=== PATIENT | male | born 1965 | race Caucasian/White ===

== ENCOUNTER 2017-07-06 12:13 | Emergency (ER) | payer MEDICAID ==
[2017-07-06] MEDS ORDERED: Lidocaine 1% 20 ML MDV INJECT ONE (12:15)
[2017-07-06] MEDS ORDERED: Bupivacaine 0.25% 10 ML SDV INJECT ONE (12:15)
--- NOTE | 2017-07-06 12:43 | EDM.PDOCBH ---
ED HPI GENERAL MEDICAL PROBLEM - General Chief Complaint: Behavioral/Psych Stated Complaint: AMB Time Seen by Provider: 07/06/17 12:15 Source of Information: Reports: Patient History Limitations: Reports: No Limitations - History of Present Illness INITIAL COMMENTS - FREE TEXT/NARRATIVE: History of present illness: []Patient came from [place] where he tried to harm himself by cutting his wrist with scissors and drinking aqua net hairspray at noon because he hears voices and he told him to do this. . He states he took 2 sips of hairspray. [facility] dispenses his meds and he states he takes them. Review of systems: As per history of present illness and below otherwise all systems reviewed and negative. Past medical history: As per history of present illness and as reviewed below otherwise noncontributory. Surgical history: As per history of present illness and as reviewed below otherwise noncontributory. Social history: No reported history of drug or alcohol abuse. Family history: As per history of present illness and as reviewed below otherwise noncontributory. Physical exam: General: Well developed, well nourished in NAD HEENT: Atraumatic, normocephalic, pupils reactive, negative for conjunctival pallor or scleral icterus, mucous membranes moist, throat clear, neck supple, nontender, trachea midline. Lungs: Clear to auscultation, breath sounds equal bilaterally, chest nontender. Heart: S1S2, regular, negative for clicks, rubs, or JVD. Abdomen: Soft, nondistended, nontender. Negative for masses or hepatosplenomegaly. Negative for costovertebral tenderness. Pelvis: Stable nontender. Genitourinary: Deferred. Rectal: Deferred. Extremities: Left wrist with 4 cm laceration with active bleeding patient able to move fingers and has brisk capillary refill distally, negative for cords or calf pain. Neurovascular unremarkable. Neuro: Awake, alert, oriented. Cranial nerves II through XII unremarkable. Cerebellum unremarkable. Motor and sensory unremarkable throughout. Exam nonfocal. Diagnostics: []Mental health workup all negative Therapeutics: []Left wrist sutured, tetanus status updated, one dose of Zyprexa given Impression: []Schizophrenia, suicidal attempt, left wrist laceration, toxic ingestion Plan: [Psychiatrist in [facility] Dr. Vasquez accepts patient and will go to the ER , Dr. Blanco accepts. Definitive disposition and diagnosis as appropriate pending reevaluation and review of above. - Related Data Allergies Allergy/AdvReac Type Severity Reaction Status Date / Time quetiapine [From Seroquel] Allergy Other Verified 07/06/17 12:15 Home Meds: Home Meds Ascorbic Acid [Vitamin C] 500 mg PO DAILY 07/06/17 [History] Benztropine [Cogentin] 0.5 mg PO BEDTIME 07/06/17 [History] Cyanocobalamin (Vitamin B-12) [Cyanocobalamin Injection] 1,000 mcg IJ DAILY 02/12 [History] Docusate Sodium [Colace] 100 mg PO BID 07/06/17 [History] Fluticasone/Salmeterol [Advair 250-50 Diskus] 1 each PO DAILY 07/06/17 [History] Folic Acid 1 mg PO DAILY 07/06/17 [History] Furosemide [Lasix] 40 mg PO DAILY 07/06/17 [History] Levothyroxine [Synthroid] 50 mcg PO DAILY 07/06/17 [History] Losartan [Cozaar] 50 mg PO DAILY 07/06/17 [History] Magnesium Chloride [Mag-64] 64 mg PO BID 07/06/17 [History] Magnesium Hydroxide [Milk of Magnesia] 30 ml PO DAILY PRN 07/06/17 [History] Multivitamin [Multivitamins] 1 each PO DAILY 07/06/17 [History] Oseltamivir [Tamiflu] 75 mg PO DAILY 07/06/17 [History] Polyethylene Glycol 3350 [MiraLAX] 17 gm PO DAILY 07/06/17 [History] Potassium Chloride 30 meq PO DAILY 07/06/17 [History] Topiramate 100 mg PO DAILY 07/06/17 [History] amLODIPine Besylate [Amlodipine Besylate] 10 mg PO DAILY 07/06/17 [History] atorvaSTATin [Lipitor] 40 mg PO DAILY 07/06/17 [History] buPROPion [buPROPion XL] 300 mg PO DAILY 07/06/17 [History] cloZAPine [Clozaril] 200 mg PO BID 07/06/17 [History] Past Medical History Cardiovascular History: Reports: Hypertension Respiratory History: Reports: COPD Gastrointestinal History: Reports: GERD Psychiatric History: Reports: Anxiety, Schizophrenia Endocrine/Metabolic History: Reports: Hypothyroidism Social & Family History - Family History Family Medical History: Noncontributory - Tobacco Use Smoking Status *Q: Never Smoker - Recreational Drug Use Recreational Drug Use: No ED ROS GENERAL - Review of Systems Review Of Systems: See Below (See history of present illness) ED EXAM, BEHAVIORAL HEALTH - Physical Exam Exam: See Below (See history of present illness) ED Add Procedures - Additional/Other Procedure(s) Procedure(s) (Free Text): Patient's left wrist was anesthetized with 3 mL of half percent lidocaine without and half percent lidocaine without. 5 cm wound of the left wrist was cleaned with saline and sutured with 5-0 nylon without any difficulty. COURSE, BEHAVIORAL HEALTH COMP - Course Vital Signs: Last Vital Signs Temp 97.7 F 07/06/17 12:15 Pulse 107 H 07/06/17 12:15 Resp 20 07/06/17 12:15 BP 174/94 H 07/06/17 12:15 Pulse Ox 99 07/06/17 12:15 Orders, Labs, Meds: Active Orders 24 hr Category Date Time Status EKG Documentation Completion [RC] STAT Care 07/06/17 12:17 Active Involuntary Admission/Hold [RC] ASDIRECTED Care 07/06/17 12:17 Active Vaccines to be Administered [RC] PER UNIT ROUTINE Care 07/06/17 13:10 Active FREE T3 [REF] Stat Lab 07/06/17 12:40 Received Laboratory Tests 07/06/17 07/06/17 07/06/17 Range/Units 12:40 12:40 12:47 WBC 8.31 (4.0-11.0) K/uL RBC 4.18 L (4.50-5.90) M/uL Hgb 13.4 (13.0-17.0) g/dL Hct 36.8 L (38.0-50.0) % MCV 88.0 (80.0-98.0) fL MCH 32.1 H (27.0-32.0) pg MCHC 36.4 (31.0-37.0) g/dL RDW Std Deviation 44.9 (28.0-62.0) fl RDW Coeff of Dewey 14 (11.0-15.0) % Plt Count 115 L (150-400) K/uL MPV 7.80 (7.40-12.00) fL Neut % (Auto) 76.1 (48.0-80.0) % Lymph % (Auto) 15.2 L (16.0-40.0) % [place] % (Auto) 8.7 (0.0-15.0) % Eos % (Auto) 0.0 (0.0-7.0) % Baso % (Auto) 0.0 (0.0-1.5) % Neut # (Auto) 6.3 H (1.4-5.7) K/uL Lymph # (Auto) 1.3 (0.6-2.4) K/uL [place] # (Auto) 0.7 (0.0-0.8) K/uL Eos # (Auto) 0.0 (0.0-0.7) K/uL Baso # (Auto) 0.0 (0.0-0.1) K/uL Nucleated RBC % 0.0 /100WBC Nucleated RBCs # 0 K/uL Sodium 132 L (136-146) mmol/L Potassium 3.6 (3.5-5.1) mmol/L Chloride 106 (98-110) mmol/L Carbon Dioxide 17 L (21-31) mmol/L BUN 9 (6.0-23.0) mg/dL Creatinine 0.9 (0.6-1.5) mg/dL Est Cr Clr Drug Dosing 102.26 mL/min Estimated GFR (MDRD) > 60.0 ml/min Glucose 99 (60-110) mg/dL Calcium 9.3 (8.8-10.8) mg/dL Magnesium 1.5 (1.5-2.3) mEq/L Total Bilirubin 0.9 (0.1-1.5) mg/dL AST 27 (5-40) IU/L ALT 45 (8-54) IU/L Alkaline Phosphatase 129 (40-150) Total Protein 6.1 (6.0-8.0) g/dL Albumin 4.2 (3.5-5.0) g/dL Globulin 1.9 L (2.0-3.5) g/dL Albumin/Globulin Ratio 2.2 (1.3-2.8) TSH 3rd Generation 1.07 (0.47-5.0) uIU/mL Urine Color Urine Appearance Urine pH (5.0-8.0) Ur Specific [place] (1.001-1.035) Urine Protein (NEGATIVE) mg/dL Urine Glucose (UA) (NEGATIVE) mg/dL Urine Ketones (NEGATIVE) mg/dL Urine Occult Blood (NEGATIVE) Urine Nitrite (NEGATIVE) Urine Bilirubin (NEGATIVE) Urine Urobilinogen (<2.0) EU/dL Ur Leukocyte Esterase (NEGATIVE) Urine RBC (0-2/HPF) Urine WBC (0-5/HPF) Ur Epithelial Cells (NONE-FEW) Urine Bacteria (NEGATIVE) Salicylates < 5.0 (0-20) mg/dL Urine Opiates Screen NEGATIVE (NEGATIVE) Ur Oxycodone Screen NEGATIVE (NEGATIVE) Urine Methadone Screen NEGATIVE (NEGATIVE) Acetaminophen < 3.0 ug/mL Ur Barbiturates Screen NEGATIVE (NEGATIVE) Ur Phencyclidine Scrn NEGATIVE (NEGATIVE) Ur Amphetamine Screen NEGATIVE (NEGATIVE) U Methamphetamines Scrn NEGATIVE (NEGATIVE) U Benzodiazepines Scrn NEGATIVE (NEGATIVE) U Cocaine Metab Screen NEGATIVE (NEGATIVE) U Marijuana (THC) Screen NEGATIVE (NEGATIVE) Ethyl Alcohol < 10.0 mg/dL 07/06/17 Range/Units 12:47 WBC (4.0-11.0) K/uL RBC (4.50-5.90) M/uL Hgb (13.0-17.0) g/dL Hct (38.0-50.0) % MCV (80.0-98.0) fL MCH (27.0-32.0) pg MCHC (31.0-37.0) g/dL RDW Std Deviation (28.0-62.0) fl RDW Coeff of Dewey (11.0-15.0) % Plt Count (150-400) K/uL MPV (7.40-12.00) fL Neut % (Auto) (48.0-80.0) % Lymph % (Auto) (16.0-40.0) % Kleberg % (Auto) (0.0-15.0) % Eos % (Auto) (0.0-7.0) % Baso % (Auto) (0.0-1.5) % Neut # (Auto) (1.4-5.7) K/uL Lymph # (Auto) (0.6-2.4) K/uL [place] # (Auto) (0.0-0.8) K/uL Eos # (Auto) (0.0-0.7) K/uL Baso # (Auto) (0.0-0.1) K/uL Nucleated RBC % /100WBC Nucleated RBCs # K/uL Sodium (136-146) mmol/L Potassium (3.5-5.1) mmol/L Chloride (98-110) mmol/L Carbon Dioxide (21-31) mmol/L BUN (6.0-23.0) mg/dL Creatinine (0.6-1.5) mg/dL Est Cr Clr Drug Dosing mL/min Estimated GFR (MDRD) ml/min Glucose (60-110) mg/dL Calcium (8.8-10.8) mg/dL Magnesium (1.5-2.3) mEq/L Total Bilirubin (0.1-1.5) mg/dL AST (5-40) IU/L ALT (8-54) IU/L Alkaline Phosphatase (40-150) Total Protein (6.0-8.0) g/dL Albumin (3.5-5.0) g/dL Globulin (2.0-3.5) g/dL Albumin/Globulin Ratio (1.3-2.8) TSH 3rd Generation (0.47-5.0) uIU/mL Urine Color YELLOW Urine Appearance CLEAR Urine pH 5.5 (5.0-8.0) Ur Specific [place] <= 1.005 (1.001-1.035) Urine Protein NEGATIVE (NEGATIVE) mg/dL Urine Glucose (UA) NEGATIVE (NEGATIVE) mg/dL Urine Ketones TRACE H (NEGATIVE) mg/dL Urine Occult Blood NEGATIVE (NEGATIVE) Urine Nitrite NEGATIVE (NEGATIVE) Urine Bilirubin NEGATIVE (NEGATIVE) Urine Urobilinogen 0.2 (<2.0) EU/dL Ur Leukocyte Esterase NEGATIVE (NEGATIVE) Urine RBC 0-1 (0-2/HPF) Urine WBC 0-1 (0-5/HPF) Ur Epithelial Cells RARE (NONE-FEW) Urine Bacteria RARE (NEGATIVE) Salicylates (0-20) mg/dL Urine Opiates Screen (NEGATIVE) Ur Oxycodone Screen (NEGATIVE) Urine Methadone Screen (NEGATIVE) Acetaminophen ug/mL Ur Barbiturates Screen (NEGATIVE) Ur Phencyclidine Scrn (NEGATIVE) Ur Amphetamine Screen (NEGATIVE) U Methamphetamines Scrn (NEGATIVE) U Benzodiazepines Scrn (NEGATIVE) U Cocaine Metab Screen (NEGATIVE) U Marijuana (THC) Screen (NEGATIVE) Ethyl Alcohol mg/dL Medications Discontinued Medications Generic Name Dose Route Start Last Admin Trade Name Baljit PRN Reason Stop Dose Admin Bacitracin 1 dose 07/06/17 13:23 07/06/17 13:30 Bacitracin Oint 1 Gm TOP 07/06/17 13:24 1 dose ONETIME ONE Administration Bupivacaine HCl 10 ml 07/06/17 12:15 07/06/17 12:21 Sensorcaine-Mpf 0.25% INJECT 07/06/17 12:16 10 ml ONETIME ONE Administration Diphtheria/Tetanus/Acell Pertussis 0.5 ml 07/06/17 13:10 07/06/17 13:30 Adacel IM 07/06/17 13:11 0.5 ml .ONCE ONE Administration Lidocaine HCl 20 ml 07/06/17 12:15 07/06/17 12:21 Xylocaine 1% INJECT 07/06/17 12:16 20 ml ONETIME ONE Administration Olanzapine 10 mg 07/06/17 13:06 07/06/17 13:08 Zyprexa PO 07/06/17 13:07 10 mg ONETIME ONE Administration Olanzapine Confirm 07/06/17 13:07 07/06/17 13:23 Zyprexa Administered 07/06/17 13:08 Not Given Dose 10 mg .ROUTE .STK-MED ONE Discharge vs Psych Eval/Treatment:: 07/06/17 13:51 Control was contacted and aqua net hairspray poses no threat. He is being transferred by ground ambulance on a hold to [facility] to Dr. Benítez. Departure - Departure Time of Disposition: 13:52 Disposition: DC/Tfer to Psych Hosp/Unit 65 Condition: Good Clinical Impression: Suicidal behavior with attempted self-injury - Discharge Information Forms: ED Department Discharge - My Orders Last 24 Hours: My Active Orders 07/06/17 12:17 EKG Documentation Completion [RC] STAT Involuntary Admission/Hold [RC] ASDIRECTED 07/06/17 12:40 FREE T3 [REF] Stat 07/06/17 13:10 Vaccines to be Administered [RC] PER UNIT ROUTINE - Assessment/Plan Last 24 Hours: My Active Orders 07/06/17 12:17 EKG Documentation Completion [RC] STAT Involuntary Admission/Hold [RC] ASDIRECTED 07/06/17 12:40 FREE T3 [REF] Stat 07/06/17 13:10 Vaccines to be Administered [RC] PER UNIT ROUTINE
[2017-07-06] MEDS ORDERED: OLANZapine 5 MG Tab PO ONE (13:06)
[2017-07-06] MEDS ORDERED: OLANZapine 5 MG Tab ONE (13:07)
[2017-07-06 13:10] LABS: ACETAMINOPHEN < 3.0 ug/mL; CHLORIDE,CL 106 mmol/L (98-110); SODIUM,NA 132 mmol/L (136-146)
[2017-07-06] MEDS ORDERED: Diphtheria,Pertussis(Acell),Tetanus Vaccine 0.5 ML Syringe IM ONE (13:10)
[2017-07-06] MEDS ORDERED: Bacitracin Oint 1 GM U/D Packet TOP ONE (13:23)
== END 2017-07-06 14:25 ==
LOC: MW.ED 12:13
DX: S61.512A Laceration without foreign body of left wrist, initial encounter (principal); T65.892A Toxic effect of other specified substances, intentional self-harm, initial encounter; F20.9 Schizophrenia, unspecified; I10 Essential (primary) hypertension; J44.9 Chronic obstructive pulmonary disease, unspecified; K21.9 Gastro-esophageal reflux disease without esophagitis; E03.9 Hypothyroidism, unspecified; Z79.899 Other long term (current) drug therapy; Z88.8 Allergy status to other drugs, medicaments and biological substances; X78.8XXA Intentional self-harm by other sharp object, initial encounter; Z23 Encounter for immunization
CPT/HCPCS: 12002; 36415; 80053; 80305; 81001; 83735; 84443; 84481; 85025; 90471; 90715; 93005; 99285; A9270; G0480; 99284

== ENCOUNTER 2018-02-08 13:34 | Emergency (ER) | payer MEDICAID ==
[2018-02-08] MEDS ORDERED: ceFAZolin/Dextrose,Iso-Osmotic 2 GM/50 ML Duplex Bag IV ONE (13:51)
[2018-02-08] MEDS ORDERED: ceFAZolin 2 GM in Premix Bag 1 BAG IV ONE (14:00)
[2018-02-08] MEDS ORDERED: Sodium Chloride 0.9% 1,000 ML IV ONE ×2 (14:05→14:11)
[2018-02-08] MEDS ORDERED: Lidocaine 1% 20 ML MDV INJECT ONE (14:09)
[2018-02-08] MEDS ORDERED: Bupivacaine 0.5% 10 ML SDV INJECT ONE (14:09)
[2018-02-08] MEDS ORDERED: Lidocaine 1% with EPINEPHrine 1:100,000 20 ML MDV INJECT ONE (14:10)
[2018-02-08] MEDS ORDERED: LORazepam 2 MG/ML SDV IVPUSH ONE (14:15)
[2018-02-08 14:32] LABS: CHLORIDE,CL 100 mmol/L (98-107); SODIUM,NA 133 mmol/L (136-148)
--- NOTE | 2018-02-08 14:41 | EDM.PDOCBH ---
ED HPI GENERAL MEDICAL PROBLEM - General Chief Complaint: Behavioral/Psych Stated Complaint: AMB Time Seen by Provider: 02/08/18 13:35 Source of Information: Reports: EMS History Limitations: Reports: No Limitations - History of Present Illness INITIAL COMMENTS - FREE TEXT/NARRATIVE: History of present illness: []Patient came in code 3 by ambulance for a self inflicted left forearm laceration with and arterial bleed. It was approximately 500 mL blood loss on scene. He has history of previous suicide attempts by cutting and states he did this intentionally today approximately one hour prior to arrival to kill himself. Patient had stable vital signs and arrived with a tourniquet in place on the left upper extremity. Review of systems: As per history of present illness and below otherwise all systems reviewed and negative. Past medical history: As per history of present illness and as reviewed below otherwise noncontributory. Surgical history: As per history of present illness and as reviewed below otherwise noncontributory. Social history: No reported history of drug or alcohol abuse. Family history: As per history of present illness and as reviewed below otherwise noncontributory. Physical exam: General: Well developed, well nourished in NAD HEENT: Atraumatic, normocephalic, pupils reactive, negative for conjunctival pallor or scleral icterus, mucous membranes moist, throat clear, neck supple, nontender, trachea midline. Lungs: Clear to auscultation, breath sounds equal bilaterally, chest nontender. Heart: S1S2, regular, negative for clicks, rubs, or JVD. Abdomen: Soft, nondistended, nontender. Negative for masses or hepatosplenomegaly. Negative for costovertebral tenderness. Pelvis: Stable nontender. Genitourinary: Deferred. Rectal: Deferred. Extremities: 2 transverse lacerations left forearm with venous bleeding, patient has distal sensation, brisk arterial and radial pulses, full range of motion of fingers and wrist negative for cords or calf pain. Neurovascular unremarkable. Neuro: Awake, alert, oriented. Cranial nerves II through XII unremarkable. Cerebellum unremarkable. Motor and sensory unremarkable throughout. Exam nonfocal. Skin:warm and dry Diagnostics: CBC shows H&H is 14/39, Chemistry, aspirin, Tylenol, alcohol, tox screen, UA, TSH. Repeat CBC at 16:00 repeat H&H is 12/34 Therapeutics: Lacerations were sutured after venous bleeding controlled by Dr. Massey, 2 g Ancef, IV hydration, patient tolerated meal and fluids ED Course: 16:00-[facility] except the patient for inpatient admission to psychiatry. Impression: Suicide attempt, laceration left forearm Prescriptions: Plan: Transferred to [facility] to Dr. Marcum for depression pediatric evaluation. Definitive disposition and diagnosis as appropriate pending reevaluation and review of above. - Related Data Allergies Allergy/AdvReac Type Severity Reaction Status Date / Time quetiapine [From Seroquel] Allergy Other Verified 07/06/17 12:15 Home Meds: Home Meds Ascorbic Acid [Vitamin C] 500 mg PO DAILY 07/06/17 [History] Benztropine [Cogentin] 0.5 mg PO BEDTIME 07/06/17 [History] Cyanocobalamin (Vitamin B-12) [Cyanocobalamin Injection] 1,000 mcg IJ DAILY 02/12 [History] Docusate Sodium [Colace] 100 mg PO BID 07/06/17 [History] Fluticasone/Salmeterol [Advair 250-50 Diskus] 1 each PO DAILY 07/06/17 [History] Folic Acid 1 mg PO DAILY 07/06/17 [History] Furosemide [Lasix] 40 mg PO DAILY 07/06/17 [History] Levothyroxine [Synthroid] 50 mcg PO DAILY 07/06/17 [History] Losartan [Cozaar] 50 mg PO DAILY 07/06/17 [History] Magnesium Chloride [Mag-64] 64 mg PO BID 07/06/17 [History] Magnesium Hydroxide [Milk of Magnesia] 30 ml PO DAILY PRN 07/06/17 [History] Multivitamin [Multivitamins] 1 each PO DAILY 07/06/17 [History] Oseltamivir [Tamiflu] 75 mg PO DAILY 07/06/17 [History] Polyethylene Glycol 3350 [MiraLAX] 17 gm PO DAILY 07/06/17 [History] Potassium Chloride in Water [Potassium Cl 30 Meq/100 ml Beena] 30 meq PO DAILY 02/12 [History] Topiramate 100 mg PO DAILY 07/06/17 [History] amLODIPine Besylate [Amlodipine Besylate] 10 mg PO DAILY 07/06/17 [History] atorvaSTATin [Lipitor] 40 mg PO DAILY 07/06/17 [History] buPROPion [buPROPion XL] 300 mg PO DAILY 07/06/17 [History] cloZAPine [Clozaril] 200 mg PO BID 07/06/17 [History] Past Medical History Cardiovascular History: Reports: Hypertension Respiratory History: Reports: COPD Gastrointestinal History: Reports: GERD Psychiatric History: Reports: Anxiety, Schizophrenia Endocrine/Metabolic History: Reports: Hypothyroidism Social & Family History - Family History Family Medical History: Noncontributory - Tobacco Use Smoking Status *Q: Never Smoker - Recreational Drug Use Recreational Drug Use: No ED ROS GENERAL - Review of Systems Review Of Systems: ROS reveals no pertinent complaints other than HPI. ED EXAM, BEHAVIORAL HEALTH - Physical Exam Exam: See Below (See history of present illness) COURSE, BEHAVIORAL HEALTH COMP - Course Vital Signs: Last Vital Signs Temp 96.6 F 02/08/18 13:40 Pulse 113 H 02/08/18 15:54 Resp 18 02/08/18 15:54 BP 105/68 02/08/18 15:54 Pulse Ox 95 02/08/18 15:54 Orders, Labs, Meds: Active Orders 24 hr Category Date Time Status Involuntary Admission/Hold [RC] ASDIRECTED Care 02/08/18 14:20 Active Laboratory Tests 02/08/18 02/08/18 02/08/18 Range/Units 13:30 13:30 15:15 WBC 10.86 (4.0-11.0) K/uL RBC 4.45 L (4.50-5.90) M/uL Hgb 14.2 (13.0-17.0) g/dL Hct 39.1 (38.0-50.0) % MCV 87.9 (80.0-98.0) fL MCH 31.9 (27.0-32.0) pg MCHC 36.3 (31.0-37.0) g/dL RDW Std Deviation 44.0 (28.0-62.0) fl RDW Coeff of Dewey 14 (11.0-15.0) % Plt Count 123 L (150-400) K/uL MPV 7.90 (7.40-12.00) fL Add Manual Diff YES Neutrophils % (Manual) 69 (48.0-80.0) % Band Neutrophils % 9 % Lymphocytes % (Manual) 17 (16.0-40.0) % Monocytes % (Manual) 5 (0.0-15.0) % Nucleated RBC % 0.0 /100WBC Absolute Seg Neuts 7.5 H (1.4-5.7) Band Neutrophils # 1.0 Lymphocytes # (Manual) 1.8 (0.6-2.4) Monocytes # (Manual) 0.5 (0.0-0.8) Nucleated RBCs # 0 K/uL Sodium 133 L (136-148) mmol/L Potassium 3.8 (3.5-5.1) mmol/L Chloride 100 (98-107) mmol/L Carbon Dioxide 18.7 L (21.0-32.0) mmol/L BUN 13 (7.0-18.0) mg/dL Creatinine 1.6 H (0.8-1.3) mg/dL Est Cr Clr Drug Dosing TNP Estimated GFR (MDRD) 45.4 ml/min Glucose 179 H (74-106) mg/dL Calcium 8.7 (8.5-10.1) mg/dL Total Bilirubin 0.5 (0.2-1.0) mg/dL AST 35 (15-37) IU/L ALT 65 H (14-63) IU/L Alkaline Phosphatase 106 (46-116) U/L Total Protein 6.7 (6.4-8.2) g/dL Albumin 4.0 (3.4-5.0) g/dL Globulin 2.7 (2.0-3.5) g/dL Albumin/Globulin Ratio 1.5 (1.3-2.8) TSH 3rd Generation 3.73 (0.36-3.74) uIU/mL Urine Color YELLOW Urine Appearance CLEAR Urine pH 6.0 (5.0-8.0) Ur Specific [place] <= 1.005 (1.001-1.035) Urine Protein NEGATIVE (NEGATIVE) mg/dL Urine Glucose (UA) NEGATIVE (NEGATIVE) mg/dL Urine Ketones NEGATIVE (NEGATIVE) mg/dL Urine Occult Blood SMALL H (NEGATIVE) Urine Nitrite NEGATIVE (NEGATIVE) Urine Bilirubin NEGATIVE (NEGATIVE) Urine Urobilinogen 0.2 (<2.0) EU/dL Ur Leukocyte Esterase NEGATIVE (NEGATIVE) Urine RBC 0-2 (0-2/HPF) Urine WBC 0-1 (0-5/HPF) Ur Epithelial Cells RARE (NONE-FEW) Urine Bacteria RARE (NEGATIVE) Salicylates 0.6 (0-20) mg/dL Urine Opiates Screen (NEGATIVE) Ur Oxycodone Screen (NEGATIVE) Urine Methadone Screen (NEGATIVE) Acetaminophen 0.0 ug/mL Ur Barbiturates Screen (NEGATIVE) Ur Phencyclidine Scrn (NEGATIVE) Ur Amphetamine Screen (NEGATIVE) U Methamphetamines Scrn (NEGATIVE) U Benzodiazepines Scrn (NEGATIVE) U Cocaine Metab Screen (NEGATIVE) U Marijuana (THC) Screen (NEGATIVE) Ethyl Alcohol < 3.0 mg/dL 02/08/18 02/08/18 Range/Units 15:15 16:07 WBC 13.92 H (4.0-11.0) K/uL RBC 3.92 L (4.50-5.90) M/uL Hgb 12.4 L (13.0-17.0) g/dL Hct 34.5 L (38.0-50.0) % MCV 88.0 (80.0-98.0) fL MCH 31.6 (27.0-32.0) pg MCHC 35.9 (31.0-37.0) g/dL RDW Std Deviation 44.1 (28.0-62.0) fl RDW Coeff of [place]wey 14 (11.0-15.0) % Plt Count 103 L (150-400) K/uL MPV 7.70 (7.40-12.00) fL Add Manual Diff YES Neutrophils % (Manual) 87 H (48.0-80.0) % Band Neutrophils % % Lymphocytes % (Manual) 7 L (16.0-40.0) % Monocytes % (Manual) 6 (0.0-15.0) % Nucleated RBC % 0.0 /100WBC Absolute Seg Neuts 12.1 H (1.4-5.7) Band Neutrophils # Lymphocytes # (Manual) 1.0 (0.6-2.4) Monocytes # (Manual) 0.8 (0.0-0.8) Nucleated RBCs # 0 K/uL Sodium (136-148) mmol/L Potassium (3.5-5.1) mmol/L Chloride (98-107) mmol/L Carbon Dioxide (21.0-32.0) mmol/L BUN (7.0-18.0) mg/dL Creatinine (0.8-1.3) mg/dL Est Cr Clr Drug Dosing Estimated GFR (MDRD) ml/min Glucose (74-106) mg/dL Calcium (8.5-10.1) mg/dL Total Bilirubin (0.2-1.0) mg/dL AST (15-37) IU/L ALT (14-63) IU/L Alkaline Phosphatase (46-116) U/L Total Protein (6.4-8.2) g/dL Albumin (3.4-5.0) g/dL Globulin (2.0-3.5) g/dL Albumin/Globulin Ratio (1.3-2.8) TSH 3rd Generation (0.36-3.74) uIU/mL Urine Color Urine Appearance Urine pH (5.0-8.0) Ur Specific [place] (1.001-1.035) Urine Protein (NEGATIVE) mg/dL Urine Glucose (UA) (NEGATIVE) mg/dL Urine Ketones (NEGATIVE) mg/dL Urine Occult Blood (NEGATIVE) Urine Nitrite (NEGATIVE) Urine Bilirubin (NEGATIVE) Urine Urobilinogen (<2.0) EU/dL Ur Leukocyte Esterase (NEGATIVE) Urine RBC (0-2/HPF) Urine WBC (0-5/HPF) Ur Epithelial Cells (NONE-FEW) Urine Bacteria (NEGATIVE) Salicylates (0-20) mg/dL Urine Opiates Screen NEGATIVE (NEGATIVE) Ur Oxycodone Screen NEGATIVE (NEGATIVE) Urine Methadone Screen NEGATIVE (NEGATIVE) Acetaminophen ug/mL Ur Barbiturates Screen NEGATIVE (NEGATIVE) Ur Phencyclidine Scrn NEGATIVE (NEGATIVE) Ur Amphetamine Screen NEGATIVE (NEGATIVE) U Methamphetamines Scrn NEGATIVE (NEGATIVE) U Benzodiazepines Scrn NEGATIVE (NEGATIVE) U Cocaine Metab Screen NEGATIVE (NEGATIVE) U Marijuana (THC) Screen NEGATIVE (NEGATIVE) Ethyl Alcohol mg/dL Medications Discontinued Medications Generic Name Dose Route Start Last Admin Trade Name Freq PRN Reason Stop Dose Admin Bupivacaine HCl 10 ml 02/08/18 14:09 02/08/18 14:10 Sensorcaine-Mpf 0.5% INJECT 02/08/18 14:10 10 ml ONETIME ONE Administration Cefazolin Sodium/Dextrose Confirm 02/08/18 13:51 02/08/18 13:58 Ancef Administered 02/08/18 13:52 Not Given Dose 2 gm IV .STK-MED ONE Cefazolin Sodium 2,000 mg/ 100 mls @ 100 mls/hr 02/08/18 13:47 02/08/18 13:57 Sodium Chloride IV 02/08/18 14:46 Not Given ONETIME ONE Cefazolin Sodium/Dextrose 2 gm 50 mls @ 50 mls/hr 02/08/18 14:00 02/08/18 13: 58 / Premix IV 02/08/18 14:59 50 mls/hr ONETIME ONE Administration Sodium Chloride 1,000 mls @ 999 mls/hr 02/08/18 14:05 02/08/18 13:34 Normal Saline IV 02/08/18 15:05 999 mls/hr .Bolus ONE Administration Sodium Chloride 1,000 mls @ 999 mls/hr 02/08/18 14:11 02/08/18 14:12 Normal Saline IV 02/08/18 15:11 999 mls/hr .Bolus ONE Administration Lidocaine HCl 20 ml 02/08/18 14:09 02/08/18 14:10 Xylocaine 1% INJECT 02/08/18 14:10 Not Given ONETIME ONE Lidocaine/Epinephrine 20 ml 02/08/18 14:10 02/08/18 14:10 Xylocaine 1% With Epinephrine 1:100,000 INJECT 02/08/18 14:11 20 ml ONETIME ONE Administration Lorazepam 1 mg 02/08/18 14:15 02/08/18 14:22 Ativan IVPUSH 02/08/18 14:16 1 mg ONETIME ONE Administration Departure - Departure Time of Disposition: 20:00 Disposition: DC/[facility] to [facility] Condition: Good Clinical Impression: Suicide attempt Laceration of left forearm without complication Qualifiers: Encounter type: initial encounter Qualified Code(s): S51.812A - Laceration without foreign body of left forearm, initial encounter - Discharge Information *PRESCRIPTION DRUG MONITORING PROGRAM REVIEWED*: No *COPY OF PRESCRIPTION DRUG MONITORING REPORT IN PATIENT NATHEN: No Referrals: PCP,None [Primary Care Provider] - Forms: ED Department Discharge - My Orders Last 24 Hours: My Active Orders 02/08/18 14:20 Involuntary Admission/Hold [RC] ASDIRECTED - Assessment/Plan Last 24 Hours: My Active Orders 02/08/18 14:20 Involuntary Admission/Hold [RC] ASDIRECTED
--- NOTE | 2018-02-08 18:33 | PCM.SN ---
- Free Text/Narrative Note: Patient is a 52-year-old male who sustained a self-inflicted laceration to the left wrist in a suicide attempt. I was called emergently to the ER to assess the wound given concern for possible arterial involvement. The pressure dressing that had previously been applied was taken down to Dr. Isidro and myself. Patient had 2 large lacerations one along the mid forearm and one at the wrist both lateral and overlying the radial artery. There was venous bleeding at both sites. Hemostats were applied to the veins and hemorrhage was controlled. We then asked the patient to perform motor functions. There was no motor deficits. The patient appeared neurologically intact with no gross deficits either. Upon inspection of the wound there appeared to be no arterial or tendonous damage. The patient had intact radial pulses proximal and distal to the wound. The wounds appear to be superficial and only involved the skin. Using a 3-0 Vicryl suture I quickly tied off the cut ends of the veins. This controlled bleeding adequately. The remainder the repair was left to Dr. Isidro given the superficial nature. Please see her note for further details. The patient will be transferred for psychologic care.
== END 2018-02-08 19:45 ==
LOC: MW.ED 13:34
DX: S51.812A Laceration without foreign body of left forearm, initial encounter (principal); S61.512A Laceration without foreign body of left wrist, initial encounter; I10 Essential (primary) hypertension; F41.9 Anxiety disorder, unspecified; E03.9 Hypothyroidism, unspecified; Z79.899 Other long term (current) drug therapy; Z88.8 Allergy status to other drugs, medicaments and biological substances; X83.8XXA Intentional self-harm by other specified means, initial encounter
CPT/HCPCS: 12004; 80053; 80305; 81001; 84443; 85025; 96365; 96375; 99285; G0480; J0690; J2060; J3490; J7040; 99284